=== PATIENT | female | born 1975 | race Hispanic/Latino ===

== ENCOUNTER 2017-07-07 08:03 | Outpatient (CLI) | payer OTHER | END 2017-07-07 08:04 | disposition home or self-care (01) | LOC: MADLABBHPM 08:03 | PROVIDERS: ATTEND Family Medicine | DX: O09.522 Supervision of elderly multigravida, second trimester (principal) | CPT/HCPCS: 36415; 82950 ==

== ENCOUNTER 2017-07-12 08:20 | Outpatient (CLI) | payer OTHER | END 2017-07-12 08:21 | disposition home or self-care (01) | LOC: MADLABBHPM 08:20 | PROVIDERS: ATTEND Family Medicine | DX: O09.522 Supervision of elderly multigravida, second trimester (principal) | CPT/HCPCS: 36415; 82951; 82952 ==

== ENCOUNTER 2017-08-28 18:55 | Emergency (ER) | payer OTHER ==
[2017-08-28] MEDS ORDERED: Famotidine In NaCl 20 mg/50 ml Premix Bag ONE (19:39)
[2017-08-28] MEDS ORDERED: EPINEPHrine 1 MG/ML AMP ONE (19:39)
[2017-08-28] MEDS ORDERED: diphenhydrAMINE 50 MG/ML VIAL ONE (19:39)
[2017-08-28] MEDS ORDERED: methylPREDNISolone Sod Succ/PF 125 MG/2 ML VIAL ONE (19:39)
== END 2017-08-28 20:25 | disposition home or self-care (01) ==
LOC: MADERS 18:55
DX: O9A.213 Injury, poisoning and certain other consequences of external causes complicating pregnancy, third trimester (principal); T78.40XA Allergy, unspecified, initial encounter; O24.419 Gestational diabetes mellitus in pregnancy, unspecified control; Z3A.28 28 weeks gestation of pregnancy
CPT/HCPCS: 96372; 96374; 96375; J0171; J1200; J2930